=== PATIENT | female | born 1955 | race Caucasian/White ===

== ENCOUNTER 2021-05-04 00:12 | Emergency (ER) | payer OTHER, SELFPAY ==
[2021-05-04 00:14] VITALS: BP 154/71; PULSE 72; RESP 16; TEMP 35.7; O2SAT 99; BMI 22.8
--- NOTE | 2021-05-04 00:39 | EDS_ITS ---
HPI History of Present Illness Chief Complaint: Back Detail of Chief Complaint: Back pain that started 5 nights ago. Informant: patient Onset/Context/Timing Current Severity: Severe Narrative Narrative: Patient presents with back pain that started 5 nights ago. Patient states that she has arthritis and chronically has some mild discomfort. Patient describes the pain kind of into her right buttock and radiating down her leg to about her knee. She denies any weakness in extremity. She denies any change in bowel bladder function. She denies saddle anesthesia. She denies any trauma to her back. Patient believes she may have a sciatic nerve issue. She denies urinary symptoms. She is had no fevers. Prior similar symptoms: No PFSH PFSH Home Medications cyclobenzaprine 10 mg PO TID PRN #20 tablet 05/04/21 [Rx Last Taken Unknown] hydrocodone-acetaminophen 1 tab PO Q4H PRN PRN 2 Days #15 tablet 05/04/21 [Rx Last Taken Unknown] methylprednisolone [Medrol (Ibrahima)] 4 mg PO .qd #21 tab 05/04/21 [Rx Last Taken Unknown] Allergy/AdvReac Type Severity Reaction Status Date / Time No Known Allergies Allergy Verified 05/04/21 00:12 Social History Smoking Status: Current every day smoker tobacco type: cigarettes ROS ROS ED Constitutional Constitutional ED: Reports systems reviewed and no addt'l complaints, except as documented; Denies body ache(s), change in weight or chills Eyes Eyes: Denies acute decrease in peripheral vision, change in vision, double vision or loss of vision ENT ENT ED: Reports none; Denies ear pain, lip swelling, loss taste/smell, neck pain, otalgia or sore throat Cardiovascular Cardiovascular: Reports none; Denies abdominal pain, chest pain with activity, leg edema, lightheadedness, palpitations, rapid heart rate or syncope Respiratory/Chest Respiratory/Chest: Reports none; Denies change in mental status, dry cough, dyspnea, hemoptysis, shortness of breath at rest or shortness of breath with exertion Gastrointestinal Gastrointestinal: Reports none; Denies abdominal pain, change in stool character, diarrhea, hematemesis, hematochezia, melena, rectal bleeding or vomiting Genitourinary Genitourinary ED: Reports none; Denies abdominal discomfort, anuria, dysuria, genital pain or polyuria Musculoskeletal Musculoskeletal: Reports none and back pain; Denies arthralgias, difficulty walking, extremity pain, muscle weakness or myalgias Integumentary Reports none; Denies abscess or rash Neurologic Neurologic: Reports none; Denies abnormal gait, confusion, focal weakness, frequent falls, headache(s), loss of vision, numbness, paresthesias, radicular pain, vertigo or weakness Psychiatric Psychiatric: Reports systems reviewed and no addt'l complaints, except as docu mented and none; Denies behavioral changes, confusion, difficulty concentrating, hallucinations, suicidal ideation, tactile hallucinations or visual hallucinations Endocrine Endocrinology: Denies none, cold intolerance, excessive sweating, fatigue or heat intolerance Hematologic/Lymphatic Hematologic/Lymphatic: Reports none; Denies anemia, easy bleeding or easy bruising Allergic/Immunologic Allergic/Immunologic ED: Denies as per HPI, none, lip swelling, mouth swelling, throat swelling, tongue swelling or hives EXAM Physical Exam Const Vital Signs: 05/04/21 00:14 Temperature 96.3 F L Temperature Source Temporal Pulse Rate 72 Respiratory Rate 16 Blood Pressure 154/71 H Blood Pressure Mean 98 Pulse Ox 99 Positive well nourished and well developed General Appearance ED: well developed and NAD HEENT Reports TM's clear and moist mucous membranes normocephalic and atraumatic; Negative for trauma or tenderness Tympanic Membrane ED: Yes TM's clear Eyes PERRL and EOMs intact bilaterally General Eye ED: Negative for pale conjunctiva or scleral icterus Neck no lymphadenopathy, supple and no JVD General: Negative for tenderness Chest Wall inspection of chest normal and palpation of chest normal Chest: Negative for tenderness Resp normal respiratory effort and clear to auscultation bilaterally Effort and Inspection: Negative for respiratory distress or pain with movement Auscultation: Negative for rhonchi, wheezes or diminished lung sounds Cardio regular rate, regular rhythm, S1 normal heart sound, S2 normal heart sound and no murmurs Peripheral Pulses: pulses 2+ throughout GI normal to inspection, nondistended, normoactive bowel sounds, soft to palpation, non-tender, non-distended and no masses Back/Spine no CVA tenderness and no thoracic nor lumbar tenderness Back/Spine Narrative: I am unable to reproduce her pain with palpation of her back. She has negative straight leg raises. Deep tendon reflexes are plus 2 out of 4 bilaterally at the patella and Achilles. Normal L5 extension. Normal sensation to light touch. Extremity normal to inspection General Extremety ED: Negative for edema General Extremity: Negative for edema Neuro oriented x3, CN's II-XII intact bilaterally, no sensory deficits noted and gait normal Sensorium / Orientation: awake, alert, oriented to person, oriented to place and oriented to time Motor Exam: strength 5/5 throughout and strength abnormal Psych mental status grossly normal Skin no rashes or lesions noted and no wounds MDM MDM MDM Narrative Medical decision making narrative: I suspect patient has sciatica. There are no red flag symptoms to suggest cauda equina syndrome. Patient will be treated in department Dilaudid and Norflex IM. Will be given a prescription for Flexeril as well as [place] and a Medrol Dosepak. Patient will be given referral to primary care physician and back surgeon for follow-up. Patient advised to return if worsening pain, weakness extremities, change in bowel or bladder function, or condition should worsen anyway. Discharge Plan Triage Chief Complaint: Back ED Provider: Justino Mccartney Dx/Rx/DC Orders Clinical Impression: Sciatica Instructions: ED Sciatica Prescriptions: New cyclobenzaprine [cyclobenzaprine] 10 MG tablet 10 mg PO TID PRN (Reason: Muscle Spasm) Qty: 20 RF: 0 hydrocodone-acetaminophen [hydrocodone-acetaminophen] 1 TABLET tablet 1 tab PO Q4H PRN PRN (Reason: Pain) 2 Days Qty: 15 RF: 0 methylprednisolone [Medrol (Ibrahima)] 4 mg tablets,dose pack 4 mg PO .qd Qty: 21 RF: 0 Primary Care Provider: Merle Yuen Referrals: Merle Yuen DO [Primary Care Provider] - 3-5 Days José Miguel Collins DO [STAFF PHYSICIAN] - 3-5 Days Vijay Perkins MD [STAFF PHYSICIAN] - 3-5 Days Disposition Disposition: Home, Self Care
[2021-05-04] MEDS: HYDROmorphone 1 MG/ML Syringe IM (00:45)
[2021-05-04] MEDS: Orphenadrine 60 MG/2 ML Ampul IM (00:46)
== END 2021-05-04 01:02 | disposition home or self-care (01) ==
LOC: ED 00:57
PROVIDERS: Emergency Provider Emergency Medicine
DX: M54.30 Sciatica, unspecified side (principal); F17.210 Nicotine dependence, cigarettes, uncomplicated
CPT/HCPCS: 96372; 99282

== ENCOUNTER → 2021-05-10 12:01 | Outpatient (CLI) | payer OTHER, SELFPAY ==
[2021-05-04 00:14] VITALS: BMI 22.8
--- NOTE | 2021-05-10 12:03 | RAD_ITS ---
STUDY: X-RAY - LUMBAR SPINE REASON FOR EXAM: Female, 65 years old. Pain. TECHNIQUE: 5 view(s) of the lumbar spine were obtained. COMPARISON: None. FINDINGS: Osteopenia. Normal lumbar lordosis. There is no substantial scoliosis. There is a normal alignment of the vertebrae. Diffuse facet sclerosis. Normal vertebral bodies and endplates. Intervertebral disc space narrowing at L3-4, L4-5 and to a lesser degree L5-S1 with osteophyte formation most marked at L4-5. Vascular calcification. RAD/L/S Spine Min 4 Views IMPRESSION: Osteopenia with mild lower lumbosacral spondylosis as described. No acute abnormality, evidence of erosive changes or evidence of fusion. Electronically Signed: Raul Parks MD at 11:01 EDT , Service support ,
== END ==
PROVIDERS: PCP Internal Medicine; Referring Provider Internal Medicine; Visit Provider Internal Medicine
DX: M54.5 Low back pain (principal)
CPT/HCPCS: 72110

== ENCOUNTER → 2021-07-01 11:41 | Outpatient (CLI) | payer OTHER, SELFPAY ==
[2021-07-01 11:48] LABS: Bacteria 0 SEEN /hpf (None Seen); Mucous, Urine 0 SEEN /hpf (<or=2+)
[2021-07-01 15:22] LABS: Color, Urine Straw (Yellow); Glucose, Dipstick Normal (Normal); Ketone-Dipstick Negative (Negative); Leukocyte Esterase-Dipstick 25 /ul (Negative); Nitrite-Dipstick Negative (Negative); Occult Blood-Urine 10 /ul (Negative); Protein-Dipstick Negative (Negative); Urine Bilirubin Dipstick Negative (Negative); Urine Clarity Sl. Cloudy (Clear); Urine Urobilinogen Normal (Normal); Urine pH 6.5 (5.0 - 8.0)
[2021-07-01 15:29] LABS: Absolute Lymphocyte Count 2.31 X10^3/uL (0.83-4.51); Basophil# 0.04 X10^3/uL; Basophil% 0.5 % (0-1); Eosinophil# 0.22 X10^3/uL; Eosinophils% 2.7 % (0-5); Hematocrit 42.3 % (37-47); Hemoglobin 13.7 g/dL (12.0-15.0); Lymphocyte # 2.31 X10^3/ul (0.83-4.51); Lymphocyte % 28.6 % (19-41); Mean Corp Hgb Conc 32.4 g/dL (32-36); Mean Corpuscular Hgb 31.1 pg (27.0-32.0); Mean Corpuscular Volume 96.1 fL (81-99); Mean Platelet Vol. 9.7 fl (6.2-12.0); Monocyte# 0.49 X10^3/uL; Monocyte% 6.1 % (0-10); NRBC Flagged by Analyzer 0 % (0-5); Neutrophil # 5.02 X10^3/uL (2.7-7.7); Platelet Count 223 K/mm3 (150-450); RBC Distribution Width CV 12.7 % (11.6-14.6); RBC Distribution Width SD 45.7 fl (35.1-43.9); White Blood Count 8.1 K/mm3 (4.4-11.0)
[2021-07-01 15:39] LABS: Red Blood Cells-Urine 0-5 SEEN /hpf (0-5); Squamous Epithelial Cells - UA 0-5 SEEN /hpf (5-10); White Blood Cells 0-5 SEEN /hpf (0-5)
[2021-07-01 15:47] LABS: AST(SGOT) 15 U/L (15-37); Alanine Aminotransfer ALT/SGPT 13 U/L (13-56); Albumin, Serum 3.7 g/dL (3.2-5.0); Alkaline Phosphatase 137 U/L (45-117); Anion Gap 5 (5-15); BUN 11 mg/dL (7-18); BUN/Creat Ratio 19.3 RATIO (10-20); Calcium,Total 9.6 mg/dL (8.5-10.1); Chloride 106 mmol/L (98-107); Cholesterol 166 mg/dL (200); Creatinine, Serum 0.57 mg/dL (0.55-1.02); EST Glomerular Filtration Rate 114 mL/min (>60); Est Glom Filt Rate - Afr Amer 137 mL/min (>60); Globulin 3.7 g/dL (2.2-4.2); Glucose 89 mg/dL (74-106); High Density Lipoprotein 56 mg/dL; Potassium 3.7 mmol/L (3.5-5.1); Protein, Total 7.4 g/dL (6.4-8.2); Sodium Level 139 mmol/L (136-145); Triglycerides 84 mg/dL; Very Low Density Lipoprotein 17 mg/dL (5-40)
== END ==
PROVIDERS: PCP Family Medicine; Referring Provider Family Medicine; Visit Provider Family Medicine
DX: F17.200 Nicotine dependence, unspecified, uncomplicated (principal); I65.29 Occlusion and stenosis of unspecified carotid artery
CPT/HCPCS: 36415; 80053; 80061; 81001; 85025

== ENCOUNTER → 2021-07-16 06:41 | Outpatient (CLI) | payer OTHER, SELFPAY ==
--- NOTE | 2021-07-16 06:52 | CT_ITS ---
STUDY: LOW DOSE CT LUNG CANCER SCREENING REASON FOR EXAM: Female, 65 years old. NICOTINE DEPENDENCY. Patient smokes 1 pack per day for 30 years. RADIATION DOSAGE (If Supplied By Facility): CTDIvol = ( 1.59 ) mGy, DLP = ( 100.06 ) mGycm TECHNIQUE: No contrast was administered. Low dose technique was utilized (average mAS-38 and kVp 120). 1.25 mm axial source images with a slice interval of 1.25-mm were reconstructed in lung windows. 2.5 mm axial source images with a slice interval of 2.5-mm were reconstructed in lung windows. 5.0 mm axial source images with a slice interval of 5.0-mm were reconstructed in soft tissue windows. Nodule measured using lung windows on PACS and/or independent workstation with automated measurement of minimum and maximum diameter. Nodule measurement reported as average diameter rounded to the nearest whole number. Growth is defined as an increase ins size of greater than 1.5 mm. COMPARISON: None. NODULES: No suspicious nodules are seen. Emphysema: Emphysematous changes. Findings suggestive of scarring at both lung apices more prominent on the right side. There are multiple subtle areas of groundglass appearance involving both upper and lower lobes in the preferential peripheral distribution. Pneumonitis associated with the colon should be ruled out. The other differential diagnosis to include include should be possible chronic interstitial pneumonitis. Aorta: Mild atherosclerotic plaque formation of the aortic arch. Coronary arteries: Unremarkable. Mediastinal nodes: Small benign-appearing mediastinal lymph nodes. Other chest and abdominal findings: CT/Low Dose CT Lung Screening IMPRESSION: Lung-RADS category 3 - Continue screening with LDCT in 6 months. IMPORTANT NOTES FOR USE: ACR Lung-RADS Version 1.1 Assessment Categories Release Date: 2018 Category: Coded 0-4 bases on nodule(s) with highest degree of suspicion. Negative screen is defined as categories 1 and 2; a positive screen is defined as categories 3 and 4. Category 3 and 4A nodules that are unchanged on interval CT should be coded as category 2, and individuals returned to screening in 12 months. Category 4X: Category 3 or 4 nodules with additional imaging findings that increase the suspicion of lung cancer, such as spiculation, GGN that doubles in size in 1 year, enlarged lymph notes, etc. Category Modifiers: S (significant finding unrelated to lung cancer) Electronically Signed: Samm Fung MD at 13:01 EDT , Service support ,
== END ==
PROVIDERS: PCP Family Medicine; Referring Provider Family Medicine; Visit Provider Family Medicine
DX: F17.200 Nicotine dependence, unspecified, uncomplicated (principal)
CPT/HCPCS: 71271

== ENCOUNTER → 2021-08-09 10:30 | Outpatient (CLI) | payer OTHER, SELFPAY ==
--- NOTE | 2021-08-09 13:53 | PFTCOMP_ITS ---
COMPLETE PULMONARY FUNCTION TEST INTERPRETATION Brief HPI: Patient is a 65 year old female, currently under the care of Dr. Miller, who presents to [facility] for complete pulmonary function tests secondary to diagnosis of dyspnea. Respiratory therapist reports good effort and reproducible results. Interpretation: Forced expiration spirometry shows no large airways obstructive ventilatory defect with an FEV1 of 96% predicted. There is no significant bronchodilator response by strict ATS criteria. Spirograms are of good quality and plateau normally. The respiratory flow volume loop shows a normal pattern. Lung volumes by body plethysmography show a normal total lung capacity at 4.78 L, 94% predicted. All other lung volumes are within normal limits. Diffusion capacity by carbon monoxide is normal at 74% predicted. The airway resistance is normal. No previous pulmonary function tests were available for review. Impression: These pulmonary function tests are within normal limits.
== END ==
PROVIDERS: PCP Family Medicine; Referring Provider Family Medicine; Visit Provider Family Medicine
DX: I65.29 Occlusion and stenosis of unspecified carotid artery (principal); R05.3 Chronic cough
CPT/HCPCS: 94060; 94726; 94729

== ENCOUNTER → 2021-09-16 09:42 | Outpatient (CLI) | payer OTHER, SELFPAY ==
--- NOTE | 2021-09-16 09:44 | CDU_ITS ---
Reason For Study: Carotid Stenosis Rt. Velocities/BP Lt. Velocities/BP Prox CCA 129/19 cm/sec. Prox CCA 154/27 cm/sec. Mid CCA 125/25 cm/sec. Mid CCA 97/20 cm/sec. Dist CCA 91/17 cm/sec. Dist CCA 85/19 cm/sec. Prox ICA 82/22 cm/sec. Prox ICA 89/23 cm/sec. Mid ICA 134/40 cm/sec. Mid ICA 133/25 cm/sec. Dist ICA 144/38 cm/sec. Dist ICA 151/26 cm/sec. Rt. ICA/CCA = 1.1. Lt. ICA/CCA = 1.5. Prox ECA 312/53 cm/sec. Prox ECA 359/61 cm/sec. Rt. Vert. 71/17 cm/sec. Lt. Vert. 72/17 cm/sec. Right Extracranial There is heterogeneous, irregular atherosclerotic plaque noted in the right common carotid artery. There is heterogeneous, irregular atherosclerotic plaque noted in the right internal carotid artery. There is heterogeneous, irregular atherosclerotic plaque noted in the right external carotid artery. Antegrade flow is noted in the right vertebral artery. Left Extracranial There is heterogeneous, irregular atherosclerotic plaque noted in the left common carotid artery. There is heterogeneous, irregular atherosclerotic plaque noted in the left internal carotid artery. The left internal carotid artery is very tortuous. There is heterogeneous, irregular atherosclerotic plaque noted in the left external carotid artery. Antegrade flow is noted in the left vertebral artery. Procedure Carotid Duplex 33715. This is a Carotid Duplex examination using B-mode, color flow and specral Doppler. Exam performed in department. VL/Carotid Duplex Ultrasound Interpretation Summary Mild (<50%) stenosis right extracranial internal carotid. Mild (<50%) stenosis left extracranial internal carotid. Mildly elevated velocities in the internal carotid arteries a ppear to be related to tortuosity bilaterally. Flow within the vertebral arteries is antegrade bila terally. Elevated velocities are noted in the external carotid arteries bilaterally, indicative o f stenosis >50% bilaterally. Ordering Physician: Cristian Miller Referring Physician: Cristian Miller Performed By: Eden Tracey RDCS, RVT
== END ==
PROVIDERS: PCP Family Medicine; Referring Provider Family Medicine; Visit Provider Family Medicine
DX: I65.29 Occlusion and stenosis of unspecified carotid artery (principal)
CPT/HCPCS: 93880

== ENCOUNTER 2021-10-23 08:42 | Outpatient (CLI) | payer OTHER, SELFPAY ==
--- NOTE | 2021-10-23 08:43 | AAAS_ITS ---
Reason For Study: Pulsatile abdominal mass Aorta Measurements Aorta Doppler Measurements Proximal aorta measures1.64 x 1.64cm. in cross- Peak systolic flow velocities within the proximal sectional axis. aorta measure 112.5 cm/sec. Proximal aorta measures1.62cm. in longitudinal Peak systolic flow velocities within the mid aorta axis. measure 81.5 cm/sec. Mid aorta measures1.79 x 1.77cm. in cross- Peak systolic flow velocities within the distal sectional axis. aorta measure 114.3 cm/sec. Mid aorta measures1.80cm. in longitudinal axis. Distal aorta measures1.48 x 1.47cm. in cross- sectional axis. Distal aorta measures1.46cm. in longitudinal axis. Left Iliac Artery Left iliac artery measures 0.72 x 0.72 cm. in the cross-sectional axis. Left iliac artery measures 0.73 cm. in the longitudinal axis. Peak systolic velocity in the left iliac artery measures 168.1 cm/sec. Right Iliac Artery Right iliac artery measures 0.84 x 0.82 cm. in the cross-sectional axis. Right iliac artery measures 0.83 cm. in the longitudinal axis. Peak systolic velocity in the right iliac artery measures 134.4 cm/sec. Procedure Aorta IVC Iliac vasculature or bypass grafts 61141. Exam performed in department. VL/AAA Screening Interpretation Summary Maximal aortic dimension in the mid abdominal aorta at 1.79 x 1.77 cm in diamet er which is normal Minimally elevated aortic flow velocities. Normal left common iliac diameter of 0.72 x 0.72 cm Normal right common iliac diameter 0.84 x 0.82 cm Ordering Physician: Cahndler Mota Referring Physician: Cristian Miller Performed By: Nicolasa Clark RVT
== END 2021-10-23 23:59 | disposition short-term general hospital (02) ==
LOC: CVS 08:43
PROVIDERS: PCP Family Medicine; Referring Provider Surgery; Visit Provider Surgery
DX: R19.00 Intra-abdominal and pelvic swelling, mass and lump, unspecified site (principal)
CPT/HCPCS: 76706

== ENCOUNTER → 2023-07-27 | Outpatient (CLI) | payer BC, MEDICARE, SELFPAY ==
--- NOTE | 2023-07-27 10:38 | CDU_ITS ---
Reason For Study: Carotid stenosis Rt. Velocities/BP Lt. Velocities/BP Prox CCA 137.5/27.9 cm/sec. Prox CCA 130.2/27.9 cm/sec. Mid CCA 101.1/18.8 cm/sec. Mid CCA 80.9/22.5 cm/sec. Dist CCA 80.2/18.8 cm/sec. Dist CCA 82.8/22.3 cm/sec. Prox ICA 132.4/38 cm/sec. Prox ICA 132.1/42.6 cm/sec. Mid ICA 141.2/40.2 cm/sec. Mid ICA 166.8/49.9 cm/sec. Dist ICA 137.2/35.1 cm/sec. Dist ICA 128.4/51.7 cm/sec. Rt. ICA/CCA = 1.40. Lt. ICA/CCA = 2.01. Prox ECA 342.5/28.6 cm/sec. Prox ECA 381.7/32.6 cm/sec. Rt. Vert. 75.3/21.2 cm/sec. Lt. Vert. 72.9/23.4 cm/sec. Right Extracranial There is heterogeneous, irregular atherosclerotic plaque noted in the right common carotid artery. There is heterogeneous, irregular atherosclerotic plaque noted in the right internal carotid artery. There is heterogeneous, irregular atherosclerotic plaque noted in the right external carotid artery. Antegrade flow is noted in the right vertebral artery. Left Extracranial There is heterogeneous, irregular atherosclerotic plaque noted in the left common carotid artery. There is heterogeneous, irregular atherosclerotic plaque noted in the left internal carotid artery. The left internal carotid artery is very tortuous. There is heterogeneous, irregular atherosclerotic plaque noted in the left external carotid artery. Antegrade flow is noted in the left vertebral artery. Procedure This is a Carotid Duplex examination using B-mode, color flow and specral Doppler. Carotid Duplex [id number]. Exam performed in department. VL/Carotid Duplex Ultrasound Interpretation Summary Irregular calcific plaque with shadowing at the proximal right internal carotid artery with 50 to 69% stenosis Greater than 50% stenosis right external carotid artery Irregular calcific plaque with shadowing at the proximal left internal carotid artery with 50 to 69% stenosis Greater than 50% stenosis left external carotid artery Torturous bilateral internal carotid arteries noted Patent and antegrade vertebral arteries bilaterally Bilateral internal carotid artery velocities are unchanged from the previous ex amination of September 16, 2021 Ordering Physician: Chandler Mota Referring Physician: Cristian Miller Performed By: Nicolasa Clark RVT
== END | disposition home or self-care (01) ==
LOC: CVS 10:38
PROVIDERS: PCP Family Medicine; Referring Provider Surgery; Visit Provider Surgery
DX: I65.23 Occlusion and stenosis of bilateral carotid arteries (principal)
CPT/HCPCS: 93880

== ENCOUNTER → 2024-08-09 | Outpatient (CLI) | payer MEDICARE, SELFPAY ==
--- NOTE | 2024-08-09 09:42 | CDU_ITS ---
Reason For Study: F/U CAROTID STENOSIS Rt. Velocities/BP Lt. Velocities/BP Prox CCA 166.0/18.9 cm/sec. Prox CCA 187.9/27.7 cm/sec. Mid CCA 133.0/23.3 cm/sec. Mid CCA 119.8/21.2 cm/sec. Dist CCA 80.6/14.2 cm/sec. Dist CCA 102.1/23.6 cm/sec. Prox ICA 113.9/26.1 cm/sec. Prox ICA 141.8/40.8 cm/sec. Mid ICA 161.8/43.1 cm/sec. Mid ICA 172.5/38.6 cm/sec. Dist ICA 273.5/47.2 cm/sec. Dist ICA 192.3/49.6 cm/sec. Rt. ICA/CCA = 2.1. Lt. ICA/CCA = 192.3/119.8=1.6. Prox ECA 358.2/44.3 cm/sec. Prox ECA 417.1/20.8 cm/sec. Rt. Vert. 68.0/13.1 cm/sec. Lt. Vert. 87.9/24.1 cm/sec. Right Extracranial There is heterogeneous, irregular atherosclerotic plaque noted in the right common carotid artery. There is heterogeneous, irregular atherosclerotic plaque noted in the right internal carotid artery. There is heterogeneous, irregular atherosclerotic plaque noted in the right external carotid artery. Antegrade flow is noted in the right vertebral artery. Left Extracranial There is heterogeneous, irregular atherosclerotic plaque noted in the left common carotid artery. There is heterogeneous, irregular atherosclerotic plaque noted in the left internal carotid artery. The left internal carotid artery is very tortuous. There is heterogeneous, irregular atherosclerotic plaque noted in the left external carotid artery. Antegrade flow is noted in the left vertebral artery. Procedure Carotid Duplex [id number]. This is a Carotid Duplex examination using B-mode, color flow and specral Doppler. The study was technically difficult. Exam performed in department. VL/Carotid Duplex Ultrasound Interpretation Summary Severe (>70%) stenosis right extracranial internal carotid. Moderate (50-69%) stenosis left extracranial internal carotid. Patent and antegrade vertebrals bilaterally. Ordering Physician: Tigre Kitchen Referring Physician: Cristian Miller Performed By: Kiana Sosa, KESHA, RVT
== END | disposition home or self-care (01) ==
PROVIDERS: PCP Family Medicine; Referring Provider Surgery Trauma Surgery; Visit Provider Surgery Trauma Surgery
DX: I65.23 Occlusion and stenosis of bilateral carotid arteries (principal)
CPT/HCPCS: 93880

== ENCOUNTER → 2024-10-18 | Outpatient (CLI) | payer MEDICARE, SELFPAY ==
--- NOTE | 2024-10-18 15:47 | CT_ITS ---
STUDY: CTA HEAD AND NECK WITH CONTRAST REASON FOR EXAM: Female, 68 years old. R ICA stenosis RADIATION DOSAGE (If Supplied By Facility): CTDIvol = ( 25.39 ) mGy, DLP = ( 1378.97 ) mGycm TECHNIQUE: CT angiography was performed with a multi-detector CT scanner. Data acquisition was obtained from the skull base through the vertex following intravenous administration of IV 100mL [id number]-370. MIP images were reconstructed from the axial data set. Post-processing of the angiographic images was performed, with multiplanar reformation and 3D reconstruction. Individualized dose optimization techniques were used for this CT. COMPARISON: No relevant priors. FINDINGS: Normal bilateral petrous carotid arteries. Normal right cavernous carotid artery with a normal supraclinoid bifurcation. Normal left cavernous carotid artery with a normal supraclinoid bifurcation. Normal right A1 segments of the anterior cerebral artery. Normal left A1 segments of the anterior cerebral artery. Normal intact anterior communicating artery (ACOM). Normal bilateral A2 segments of the anterior cerebral arteries. Normal right M1 and M2 segments of the middle cerebral arteries, with a normal M1 bifurcation. Normal left M1 and M2 segments of the middle cerebral arteries, with a normal M1 bifurcation. Normal right posterior communicating artery (PCOM). Normal left posterior communicating artery (PCOM). Normal bilateral vertebral arteries. Normal basilar artery with a normal basilar bifurcation. The visualized bilateral superior cerebellar (SCA) arteries are normal. Normal bilateral P1, P2 and visualized P3 segments of the posterior cerebral arteries. There is no demonstrated aneurysm of the ho-chunk of [place]. Mild degree of cerebral atrophy. AORTIC ARCH: There is atherosclerotic calcific plaque formation of the aortic arch and great vessels arising from the aortic arch, without a hemodynamically significant stenosis. There is a normal origin of the brachiocephalic, left common carotid, and left subclavian arteries. Normal origins of the brachiocephalic, left common carotid, and left subclavian arteries. Atherosclerotic plaque formation at the origin of the left subclavian artery. RIGHT CAROTID ARTERIES: Normal right common carotid artery (CCA). Normal right common carotid bulb. There is extensive atherosclerotic plaque formation of the origin of the right internal carotid artery with an estimated stenosis of greater than 70%. Normal visualized cervical portion of the right internal carotid artery. There is severe atherosclerotic plaque formation of the origin of the right external carotid artery with a near complete occlusion. LEFT CAROTID ARTERIES: Normal left common carotid artery (CCA). Normal left common carotid bulb. There is moderate atherosclerotic plaque formation of the origin of the left internal carotid artery with an estimated stenosis of 50-69% stenosis. Normal visualized cervical portion of the left internal carotid artery. There is severe atherosclerotic plaque formation of the origin of the left external carotid artery with a near complete occlusion. VERTEBRAL ARTERIES: Normal bilateral vertebral arteries. There is evidence of a 1 cm hypodense nodule in the midportion of the right lobe of the thyroid gland. CT/CTA Head AND Neck W/ Contrast IMPRESSION: Calcific plaque at the origin of the right internal carotid artery causing greater than 70% stenosis. Atherosclerotic calcific plaque at the origin of the left internal carotid artery causing between 50 and 69% stenosis. High-grade stenosis at the origin of both the right and left external carotid arteries. Electronically Signed: Samm Fung MD at 11:09 EST ,
== END | disposition home or self-care (01) ==
LOC: CT 15:44
PROVIDERS: PCP Family Medicine; Referring Provider Physician Assistant; Visit Provider Physician Assistant
DX: I65.21 Occlusion and stenosis of right carotid artery (principal)
CPT/HCPCS: 70496; 70498; Q9967